=== PATIENT | male | born 1955 | race Caucasian/White ===

== ENCOUNTER 2023-05-19 10:15 | Outpatient (CLI) | payer MEDICARE ==
--- NOTE | 2023-05-19 11:22 | Sleep Patient Instructions ---
Sleep Center Visit Summary - Patient Visit Information Reason for Visit: Initial consultation - Patient Instructions Additional Instructions: You were here to establish care of CPAP therapy. You will be continued on CPAP therapy with pressure at 5-7 cmH2O. Please let us know if the pressure change is uncomfortable and we can make further adjustments of the pressure. You will be completing a sleep study, either an in-lab polysomnography (PSG) or home sleep study (HST). You will follow-up in the sleep care office after the sleep study is completed to hear the results and talk about therapy, if needed. You will be called by our office staff to schedule this appointment, but you may contact us with any questions. - Clinic Information Contact: [facility] [address] [place] [address] [email or web address] T: [phone]
--- NOTE | 2023-05-19 11:27 | SLEEP CARE CONSULTATION ---
Information from patient questionnaire entered by Aleshia Bennett. I have reviewed and concur with the information entered by Aleshia Bennett. This document represents the service I personally performed and the decisions made by me, Yelena Gipson ARNP. History of Present Illness Service Date and Time: 05/19/2023 1015 Reason for Visit: New patient, Previously diagnosed sleep apnea, sleep apnea on CPAP therapy Date of Onset: 15YRS Usual bedtime: 2130 Time it takes to fall asleep: 5MINS Snores at night: Yes Observed to quit breathing while asleep: No Sleeps alone due to snoring: No Number of times waking at night: 3 Reasons for waking at night: reports: Bathroom Toss, Turn, or Twitch while sleeping: No Recalls having dreams: Yes Usually gets out of bed at: 0630 Feels refreshed in the morning: Yes Morning headache: No Sleepy or fatigued during the day: Yes Ever fallen asleep while driving: No Takes day naps: No Dreams during day naps: No Prior sleep studies: Yes Year and Where: 2014 [facility] Additional HPI information: GEORGETTE AGUILERA was previously diagnosed to have mild, AHI 9.6 (23.2 in REM), obstructive sleep apnea-hypopnea syndrome as seen in PSG dated 09/12/2014 through [facility] and comes in today to establish care for CPAP therapy. - Parasomnia Symptoms Ever been unable to move upon waking from sleep: No Walks in sleep: No Talks in sleep: No Ever acted out dreams in sleep: No Ever felt weak in the knees when startled or emotional: No Bothered by creepy, crawly, restless sensations in legs: No Problems with memory or concentration: No CPAP Compliance Data - Data Reviewed with Patient Average duration of nightly device use: 7 hours 46 minutes Compliance rate %: 88 (83/90 days used) Current pressure setting (cmH2O): 5-20 (avg 7, max 8) Average residual AHI: 0.9 Central apnea: 0.2 Obstructive apnea: 0.5 Hypopnea: 0.1 Average large leak: 10.6 L/min Compliance data discussion: He has a ResMed Airsense 10 that was received 09/21/2014. He gets his supplies from [employer]. He is using nasal pillows mask, ResMed P10. Subjective Missed days of use due to: reports: travel Patient concerns: reports: condensation in mask/hose (occasionally), dry mouth, nose, throat (dry mouth). denies: aerophagia, mask discomfort, air blowing in eyes, mask leak noise, nasal congestion, epistaxis Observed to snore while using device: No Current pressure setting perceived as: comfortable On therapy, patient: reports: sleeping better, awakening more refreshed, being more awake and alert during the day, more rested overall, other. denies: drowsiness while driving Initial [place] Sleepiness Scale score: 5 (05/19/23) Past Medical History Past Medical History: reports: Hypertension, Diabetes Social History The patient's occupation is a RE. Patient is and lives in [place]. Have you smoked in the past 12 months: No Alcohol use: Yes Alcohol amount and frequency: 2-3 A WEEK Caffeine use: Yes Caffeine amount and frequency: 2 CUPS COFFEE DAILY Family History Family history of sleep disordered breathing: Yes Family Hx Sleep Apnea: Father: Snoring, Sleep apnea - Untreated, Sibling: Snoring, Sleep apnea - Treated Allergies and Home Medications Known drug allergies: No Drug allergies reviewed: Yes Home medication list reviewed: Yes (as listed) Allergy and home medication list: Allergies No Known Drug Allergies Allergy (Verified 05/19/23 10:26) Home Medications Aspirin [Vaz[place]] See Rx Instructions .ROUTE .COMPLEX 05/19/23 [History] Empagliflozin [Jardiance] See Rx Instructions .ROUTE .COMPLEX 05/19/23 [History] Lisinopril [Zestril] See Rx Instructions .ROUTE .COMPLEX 05/19/23 [History] Mv-Min/Folic/K1/Lycopen/Lutein [Centrum Silver Men Tablet] See Rx Instructions .ROUTE .COMPLEX 05/19/23 [History] Rosuvastatin Calcium See Rx Instructions .ROUTE .COMPLEX 05/19/23 [History] Ubidecarenone [Co Q-10] See Rx Instructions .ROUTE .COMPLEX 05/19/23 [History] glucosamine HCL [Glucosamine HCl] See Rx Instructions .ROUTE .COMPLEX 05/19/23 [History] metFORMIN [Glucophage] See Rx Instructions .ROUTE .COMPLEX 05/19/23 [History] Review of Systems Weight loss over past 5 years: 30 (100 in last 15 years) Cardiovascular: reports: high blood pressure Respiratory: denies: shortness of breath Gastrointestinal: denies: heartburn Urinary: reports: frequency Psychiatric: denies: Attention Deficit Hyperactivity, anxiety, depression Ear/Nose/Throat: reports: sinus problems, injury to nose. denies: tonsillectomy Musculoskeletal: reports: joint pain, back pain, muscle pain or cramping Physical Exam Vital signs obtained and entered by: ALESHIA Lopez MA Blood Pressure: 150/73 (LEFT ARM) Cuff size: regular Heart Rate: 88 O2 Saturation: 99 Height: 6 ft 2 in Weight: 201 lb 12.8 oz Body Mass Index: 25.9 BMI Classification: Overweight Neck circumference: 15.5 Heart: regular rate and rhythm Lungs: clear bilaterally Impression and Plan 1. Obstructive Sleep Apnea-Hypopnea Syndrome, mild, with good treatment compliance and good apnea control. On CPAP therapy, the patient has better sleep quality and is more rested overall. Patient has lost 100 pounds since his last sleep study in 2014. He is lost 30 pounds in the last 5 years. He states he can sleep without the CPAP and wake up feeling refreshed. I think it would be pertinent to get a new baseline since his last sleep study was in 2014 and he is lost significant amount of weight since then. I recommend proceeding to polysomnography to confirm the diagnosis and to assess severity. I obtained agreement to proceed. The patients pressure will be changed to autoCPAP 5-7 cmH20 to reflect pressure being used. Patient advised to contact me if pressure change is uncomfortable so that it can be adjusted. Goals for apnea control discussed. Patient's apnea severity and rationale for treatment to reduce apnea, improve sleep quality and reduce cardiovascular and cerebrovascular events was reviewed. I also reviewed the benefit of consistent device use of CPAP for hypertension, diabetes. 2. Overweight, unspecified. Currently patients BMI is 25.9. He has lost 30 pounds in the last 5 years and 100 pounds over last 15 years (since last sleep study). Obesity increases the risk of apnea, CPAP pressure requirements and overall health risks especially cardiovascular and diabetes. Thus patient is advised to continue to try to lose weight. * Change auto CPAP pressure to 5-7 cmH2O * Update supply prescription * PSG to verify diagnosis and severity * Notify me if snoring with mask or feeling that the pressure is too much or too little * Attempt to lose weight * Call this office if any problems using CPAP * Return for follow up after sleep study, or sooner if concerns arise Adjust device pressure to (cmH2O): 5-7 Counseling Topics: Spare mask Prescriptions: Device supplies Follow up with Sleep Care in: other (after sleep study) Plan: PSG Visit Type: In Office Time Spent with Patient (minutes): 31 Provider Statement: I spent 100% of the Face to Face Visit with the patient with greater than 50% spent counseling the patient and coordination of care.
[2023-05-19 11:32] VITALS: BP 150/73; O2SAT 99
== END 2023-05-19 10:16 | disposition home or self-care (01) ==
LOC: SC 10:15
PROVIDERS: ATTEND Nurse Practitioner Family
DX: G47.33 Obstructive sleep apnea (adult) (pediatric) (principal); E66.3 Overweight; Z68.25 Body mass index [BMI] 25.0-25.9, adult
CPT/HCPCS: 99203; G0463; 99212

== ENCOUNTER 2023-07-05 21:08 | Outpatient (CLI) | payer MEDICARE | END 2023-07-05 21:09 | disposition home or self-care (01) | LOC: SC 21:08 | PROVIDERS: ATTEND Nurse Practitioner Family | DX: G47.61 Periodic limb movement disorder (principal) | CPT/HCPCS: 95810 ==

== ENCOUNTER 2023-08-19 13:15 | Outpatient (CLI) | payer MEDICARE ==
--- NOTE | 2023-08-19 13:38 | Sleep Patient Instructions ---
Sleep Center Visit Summary - Patient Visit Information Reason for Visit: Sleep study follow-up - Patient Instructions Additional Instructions: Your sleep study today was negative for significant sleep disordered breathing. You do not need to continue with CPAP therapy and I have written an order to discontinue. You will need to maintain a healthy weight because regaining weight you have lost could reverse this finding. Follow-up as needed. - Clinic Information Contact: [facility] [address] [place] [address] [email or web address] T: [phone]
--- NOTE | 2023-08-19 13:42 | SLEEP CARE CONSULTATION ---
Information from patient questionnaire entered by Ale Bennett. I have reviewed and concur with the information entered by Ale Bennett. This document represents the service I personally performed and the decisions made by , Yelena Gipson ARNP. History of Present Illness Service Date and Time: 08/19/2023 1315 Initial [place] Sleepiness Scale score: 5 (05/19/23) Current [place] Sleepiness Scale score: 5 (08/19/23) Additional HPI information: HENRY AGUILERA returns for follow up and results of the recently performed polysomnography. The patient was informed of the following findings: No significant sleep disordered breathing with an average AHI of 0.2 and anuel oxygen saturation of 90%. I explained the pathophysiology behind obstructive sleep apnea. Patient does not have sleep apnea and was advised how weight gain could increase the risk of developing sleep apnea in the future. Patient denies drowsy driving. Sleep Study - Results Type of Sleep Study: Polysomnography (COMPLETED 07/05/23) Prior sleep studies: Yes Year and Where: 2014 [facility] Polysomnography/Home Sleep Study results: IMPRESSION: The quality of the study is good. The patient had slightly reduced sleep efficiency due to prolonged awakening in the middle of the night. The sleep architecture was abnormal for sleep fragmentation and lack of slow wave sleep (N3). Respiratory monitoring showed no significant sleep disordered breathing (AHI = 0.2) or hypoxia (anuel oxygen saturation of 90%). The patient slept adequately in supine position (supine AHI = 0.0; non-supine = 0.19). No audible snore. There was severe periodic leg movement of sleep contributing to the sleep fragmentation. Cardiac rhythm was normal sinus rhythm without significant arrhythmia. No abnormal behavior (parasomnia) observed during the night. Allergies and Home Medications Known drug allergies: No Drug allergies reviewed: Yes Home medication list reviewed: Yes (no changes) Allergy and home medication list: Allergies No Known Drug Allergies Allergy (Verified 08/18/23 08:05) Review of Systems Review of systems same as previous: Yes (NO CHANGE) Physical Exam Vital signs obtained and entered by: ALE Lopez MA Blood Pressure: 132/77 (LEFT ARM) Cuff size: regular Heart Rate: 88 O2 Saturation: 97 Height: 6 ft 2 in Weight: 198 lb Body Mass Index: 25.4 BMI Classification: Overweight Impression and Plan 1. Periodic limb movement, severe, that did not fragment patients sleep. His PSG showed no significant sleep disordered breathing. He does not need to continue with CPAP therapy. Thus, the CPAP will be discontinued. Periodic limb movement of sleep (PLMS) is characterized by episodes of repetitive limb movements that occur during sleep and usually involve the lower limbs. The etiology is unknown. Patient was advised that no treatment is needed at this time. If symptoms increase, then further evaluation is indicated. 2. Overweight, minimal. Currently patients BMI is 25.4. Obesity increases the risk of apnea, CPAP pressure requirements and overall health risks especially cardiovascular and diabetes. Thus patient is advised to maintain a healthy weight. * Discontinue CPAP therapy * Maintain a healthy weight * Call this office if any problems * Return for follow up as needed, or sooner if concerns arise Counseling Topics: Weight control Follow up with Sleep Care in: as needed Visit Type: In Office Time Spent with Patient (minutes): 11 Provider Statement: I spent 100% of the Face to Face Visit with the patient with greater than 50% spent counseling the patient and coordination of care.
[2023-08-19 13:49] VITALS: BP 132/77; O2SAT 97
== END 2023-08-19 13:16 | disposition home or self-care (01) ==
LOC: SC 13:15
PROVIDERS: ATTEND Nurse Practitioner Family
DX: G47.61 Periodic limb movement disorder (principal); E66.3 Overweight; Z68.25 Body mass index [BMI] 25.0-25.9, adult
CPT/HCPCS: 99212; G0463